=== PATIENT | female | born 1990 | race African-American/Black ===

== ENCOUNTER 2022-01-24 09:30 | Emergency (ER) | payer MEDICAID ==
[~2022-01-24] VITALS: Ht 160 cm; Wt 77.0 kg
[2022-01-24 09:38] VITALS: BP 96/58
[2022-01-24 10:59] LABS: BASOPHILS % 0.9 % (0.0-2.0); EOSINOPHILS % 2.7 % (0.0-5.0); HEMATOCRIT. 39.2 % (36.0-48.0); HEMOGLOBIN. 12.7 g/dL (12.0-16.0); LYMPHOCYTES % 44.8 % (20.0-50.0); MEAN CORPUSCULAR HEMOGLOBIN 27.1 pg (28.0-32.0); MEAN CORPUSCULAR VOLUME 83.3 fL (81.0-99.0); MONOCYTES % 6.4 % (2.0-8.0); NEUTROPHILS % 45.2 % (40.0-76.0); PLATELET 235 x1000/uL (130-400)
[2022-01-24 11:10] LABS: CHLORIDE 110 mEq/L (98-107)
[2022-01-24 11:19] LABS: B-HCG QUANTITATIVE 3 mIU/mL (<3)
== END 2022-01-24 11:45 | disposition home or self-care (01) ==
LOC: ER 09:30
DX: O02.1 Missed abortion (principal); Z87.440 Personal history of urinary (tract) infections
CPT/HCPCS: 36415; 76830; 76856; 80053; 84702; 85025; 86850; 86900; 99284